=== PATIENT | male | born 1970 | race Caucasian/White ===

== ENCOUNTER 2020-01-23 05:55 | Emergency (ER) | payer SELFPAY ==
[~2020-01-23] VITALS: Ht 188 cm; Wt 100.0 kg
[2020-01-23 06:01] VITALS: BP 162/96
--- NOTE | 2020-01-23 06:18 | PHYS DOC ---
Past History Past Medical History: Kidney Stones Past Surgical History: Other Additional Past Surgical Histo: KNEE SX Smoking: Cigarettes, Greater than 1 pack/day Alcohol Use: None Drug Use: None General Adult EDM: Chief Complaint: FLANK PAIN HPI: HPI: Patient is a 49-year-old male who presents with chief complaint of left flank pain that began at 1 AM. Patient describes 10 out of 10 stabbing pain in the left flank that radiates to the left testicle. Pain is mildly worse with palpation. Pain is been constant. Patient denies any dysuria hematuria. Patient has not had any fever or vomiting but is nauseous. Patient denies any other recent illnesses or trauma. Review of Systems: Review of Systems: Constitutional: Denies fever or chills Eyes: Denies change in visual acuity HENT: Denies nasal congestion or sore throat Respiratory: Denies cough or shortness of breath Cardiovascular: Denies chest pain or edema GI: Complains of left-sided abdominal pain and nausea but no vomiting, blood in stool or diarrhea : Denies dysuria Musculoskeletal: Complains of left flank pain Integument: Denies rash Neurologic: Denies headache, focal weakness or sensory changes Endocrine: Denies polyuria or polydipsia Lymphatic: Denies swollen glands Psychiatric: Denies depression or anxiety Heart Score: Risk Factors: Risk Factors: DM, Current or recent (<one month) smoker, HTN, HLP, family history of CAD, obesity. Risk Scores: Score 0 - 3: 2.5% MACE over next 6 weeks - Discharge Home Score 4 - 6: 20.3% MACE over next 6 weeks - Admit for Clinical Observation Score 7 - 10: 72.7% MACE over next 6 weeks - Early Invasive Strategies Current Medications: Current Meds: Current Medications Medications (Trade) Dose Ordered Sig/Cynthia Start Time Stop Time Status Last Admin Dose Admin Ketorolac Tromethamine (Toradol 15mg Vial) 15 mg 1X ONCE 01/23/20 06:15 01/23/20 06:16 UNV Ondansetron HCl (Zofran) 4 mg 1X ONCE 01/23/20 06:15 01/23/20 06:16 UNV Sodium Chloride 1,000 ml @ 1,000 mls/hr 1X ONCE 01/23/20 06:15 01/23/20 07:14 UNV Allergies: Allergies: Allergies Coded Allergies Type Severity Reaction Last Updated Verified No Known Drug Allergies 05/05/13 No Physical Exam: PE: Constitutional: Well developed, well nourished, mild distress HENT: Normocephalic, atraumatic, bilateral external ears normal, oropharynx moist, no oral exudates, nose normal. [] Eyes: PERRLA, EOMI, conjunctiva normal, no discharge. [] Neck: Normal range of motion, no tenderness, supple, no stridor. [] Cardiovascular:Heart rate regular rhythm, peripheral pulses are intact, cap refill is brisk Lungs & Thorax: Bilateral breath sounds clear, no respiratory distress Abdomen: Soft with mild left side abdominal tenderness without guarding or rebound, no masses, no pulsatile masses. [] Skin: Warm, dry, no erythema, no rash. [] Back: No tenderness, no CVA tenderness. [] Extremities: No tenderness, no cyanosis, no clubbing, ROM intact, no edema. [] Neurologic: Alert and oriented X 3, normal motor function, normal sensory function, no focal deficits noted. [] Psychologic: Affect normal, judgement normal, mood normal. [] Current Patient Data: Labs: Laboratory Tests Test 01/23/20 06:30 01/23/20 08:14 White Blood Count 12.5 x10^3/uL Red Blood Count 4.55 x10^6/uL Hemoglobin 14.5 g/dL Hematocrit 43.7 % Mean Corpuscular Volume 96 fL Mean Corpuscular Hemoglobin 32 pg Mean Corpuscular Hemoglobin Concent 33 g/dL Red Cell Distribution Width 13.4 % Platelet Count 240 x10^3/uL Neutrophils (%) (Auto) 82 % Lymphocytes (%) (Auto) 10 % Monocytes (%) (Auto) 7 % Eosinophils (%) (Auto) 1 % Basophils (%) (Auto) 1 % Neutrophils # (Auto) 10.2 x10^3uL Lymphocytes # (Auto) 1.3 x10^3/uL Monocytes # (Auto) 0.9 x10^3/uL Eosinophils # (Auto) 0.1 x10^3/uL Basophils # (Auto) 0.1 x10^3/uL Sodium Level 137 mmol/L Potassium Level 4.1 mmol/L Chloride Level 103 mmol/L Carbon Dioxide Level 24 mmol/L Anion Gap 10 Blood Urea Nitrogen 13 mg/dL Creatinine 1.0 mg/dL Estimated GFR (Cockcroft-Gault) 79.8 Glucose Level 124 mg/dL Calcium Level 8.8 mg/dL Urine Collection Type Unknown Urine Color Yellow Urine Clarity Hazy Urine pH 5.0 Urine Specific [place] 1.025 Urine Protein 30 mg/dl Urine Glucose (UA) Neg mg/dL Urine Ketones (Stick) Neg mg/dL Urine Blood Large Urine Nitrite Neg Urine Bilirubin Neg Urine Urobilinogen Dipstick 0.2 mg/dL Urine Leukocyte Esterase Neg Urine RBC 20-40 /HPF Urine WBC 1-4 /HPF Urine Squamous Epithelial Cells Few /LPF Urine Bacteria 0 /HPF Urine Mucus Mod /LPF Current Medications Medications (Trade) Dose Ordered Sig/Cynthia Route PRN Reason Start Time Stop Time Status Last Admin Dose Admin Ketorolac Tromethamine (Toradol 15mg Vial) 15 mg 1X ONCE IVP 01/23/20 06:30 01/23/20 06:31 DC 01/23/20 06:21 Ondansetron HCl (Zofran) 4 mg 1X ONCE IVP 01/23/20 06:30 01/23/20 06:31 DC 01/23/20 06:21 Sodium Chloride 1,000 ml @ 1,000 mls/hr 1X ONCE IV 01/23/20 06:30 01/23/20 07:29 DC 01/23/20 06:21 Morphine Sulfate (Morphine 4mg Syringe) 4 mg 1X ONCE IV 01/23/20 08:00 01/23/20 08:04 DC 01/23/20 08:12 Vital Signs: Vital Signs Date Time Temp Pulse Resp B/P (MAP) Pulse Ox O2 Delivery O2 Flow Rate FiO2 01/23/20 06:01 97.5 73 18 162/96 (118) 98 Room Air EKG: EKG: [] Radiology/Procedures: Radiology/Procedures: [][address] [address] IMAGING REPORT Signed PATIENT: NOELLE VALVERDE ACCOUNT: [id number] : 1970 LOCATION: ER AGE: 49 SEX: M EXAM STATUS: REG ER ORD. PHYSICIAN: ROBERT MENDEZ MD REASON: left flank pain, r/o stone PROCEDURE: CT ABDOMEN PELVIS WO CONTRAST CT abdomen and pelvis without contrast: Reason for examination: Left flank pain. Evaluate for stone. Comparison is made to previous study dated 05/05/2013. Helical images were obtained through the abdomen or pelvis with no intravenous or oral contrast administered. Reconstruction was performed in sagittal and coronal planes. Exposure: One or more of the following individualized dose reduction techniques were utilized for this examination: 1. Automated exposure control 2. Adjustment of the mA and/or kV according to patient size 3. Use of iterative reconstruction technique. The lung bases are clear. The heart size is normal with no pericardial effusion. No other focal abnormality seen at the liver, spleen, pancreas, gallbladder or adrenal glands. The abdominal aorta and inferior vena cava show no acute abnormalities. No abnormality seen at the appendix. The colon shows no diverticulosis, diverticulitis or colitis. The small intestinal tract shows no abnormal dilatation, wall thickening or obstruction. No abnormality seen at the stomach. The kidneys show nonobstructing right renal calculi. There is however a mild left hydronephrosis due to a 4 m calculus in the distal left ureter at least 5 cm above the ureterovesical junction. No renal masses are seen but there is some mild perinephric stranding on the left. No abnormality seen at the bladder. Prostate gland is enlarged at 5.4 cm. Seminal vesicles are symmetric. No free fluid or free air seen in the abdomen or pelvis. There is degenerative disc disease at the L4-5 and L5-S1 levels. IMPRESSION: Nonobstructing calculi in the right kidney. Mild left hydronephrosis due to an obstructing calculus in the distal left ureter approximately 5 cm above the ureterovesical junction. Enlarged prostate gland 5.4 cm. Electronically signed by: Wilder Francois MD (01/23/2020 7:12 AM) [facility] DICTATED AND SIGNED BY: WILDER FRANCOIS MD DATE: 01/23/20 0712 CC: ROBERT MENDEZ MD; PCP,NO ~ Course & Med Decision Making: Course & Med Decision Making Pertinent Labs and Imaging studies reviewed. (See chart for details) []reassessed at 7:14 am: pain much better, pt sleeping 49-year-old male presents with left flank pain. Patient has a left distal ureteral stone. Patient feels much better after treatment in ER. Patient not septic appearing. Discussed with patient need for follow-up with urology and return precautions given. Dg Disclaimer: Dg Disclaimer: This electronic medical record was generated, in whole or in part, using a voice recognition dictation system. Departure Departure: Impression: Primary Impression: Left ureteral stone Additional Impression: Left flank pain Disposition: 01 HOME/RESIDENCE PRIOR TO ADM Condition: STABLE Referrals: PCP,NO (PCP) urology 2-3 days Patient Instructions: Kidney Stones Additional Instructions: EMERGENCY DEPARTMENT GENERAL DISCHARGE INSTRUCTIONS THANK YOU for coming to [facility] Emergency Department (ED) today and trusting us with your care. We trust that you had a positive experience in our Emergency Department. If you wish to speak to the department Management you can contact the emergency department at YOUR FOLLOW UP INSTRUCTIONS ARE FOLLOWS: Do you have a private doctor? If you do not have a private doctor, please ask for a resource list of physicians or clinics that may be able to assist you with follow up care. The Emergency Physician has interpreted your x-rays. The X-ray specialist will also review them. If there is a change in the findings you will be notified in 48 hours when at all possible. A lab test or lab culture may have been done, your results will be reviewed and you will be notified if you need a change in treatment. ADDITIONAL INSTRUCTIONS AND INFORMATION Your care today has been supervised by a physician who is specially trained in emergency care. Many problems require more than one evaluation for a complete diagnosis and treatment. We recommend that you schedule your follow up appointment as recommended to ensure complete treatment of your illness or injury. If you are unable to obtain follow up care and continue to have a problem, or if your condition worsens we recommend that you return to the ED. We are not able to safely determine your condition over the phone nor are we a ble to give sound medical advice over the phone. For these safety reasons, if you call for medical advice we will ask you to come to the ED for further evaluation If you have any questions regarding these discharge instructions please call the ED at . SAFETY INFORMATION In the interest of safety, wellness, and injury prevention; we encourage you to wear your seatbelt, if you smoke; quit smoking, and we encourage your family to use protective helmet for bicycling and other sporting events that present an increased risk for head injury. IF YOUR SYMPTOMS WORSEN OR NEW SYMPTOMS DEVELOP, OR YOU HAVE CONCERNS ABOUT YOUR CONDITION; OR IF YOUR CONDITION WORSENS WHILE YOU ARE WAITING FOR YOUR FOLLOW UP APPOINTMENT; EITHER CONTACT YOUR PRIMARY CARE DOCTOR, THE PHYSICIAN WHOSE NAME AND NUMBER YOU WERE GIVEN, OR RETURN TO THE ED IMMEDIATELY. Scripts Tamsulosin Hcl (FLOMAX) 0.4 Mg Cap.er.24h 1 CAP PO DAILY for kidney stone for 5 Days, #5 CAP 0 Refills Prov: ROBERT MENDEZ MD 01/23/20 Ondansetron Hcl (ZOFRAN) 4 Mg Tablet 1 TAB PO Q6HRS for nausea, #12 TAB Prov: ROBERT MENDEZ MD 01/23/20 Ibuprofen (Ibu) 600 Mg Tablet 1 TAB PO Q6-8HRS for pain for 6 Days, #24 TAB 0 Refills Prov: ROBERT MENDEZ MD 01/23/20 Hydrocodone Bit/Acetaminophen (NORCO 5-325 TABLET) 1 Each Tablet 1 TAB PO PRN Q6HRS PRN for PAIN, #12 TAB 0 Refills Prov: ROBERT MENDEZ MD 01/23/20 Justification of Admission: Justification of Admission: Justification of Admission Dx: N/A ROBERT MENDEZ MD Jan 23, 2020 06:18
[2020-01-23] MEDS ORDERED: KETOROLAC 15 MG/ML VIAL. IVP ONE (06:30)
[2020-01-23] MEDS ORDERED: IV NORMAL SALINE 1,000ML 1,000 ML IV ONE (06:30)
[2020-01-23] MEDS ORDERED: ONDANSETRON PF 4 MG/2 ML VIAL. IVP ONE (06:30)
[2020-01-23 06:44] LABS: BASO # 0.1 x10^3/uL (0.0-0.2); BASO % 1 % (0-3); EOS # 0.1 x10^3/uL (0.0-0.7); EOS % 1 % (0-3); HEMATOCRIT 43.7 % (39.0-53.0); HEMOGLOBIN 14.5 g/dL (13.0-17.5); LYMPH # 1.3 x10^3/uL (1.0-4.8); LYMPH % 10 % (24-48); MEAN CORPUSCULAR HEMOGLOBIN 32 pg (25-35); MEAN CORPUSCULAR HGB CONC 33 g/dL (31-37); MEAN CORPUSCULAR VOLUME 96 fL (79-100); MONO # 0.9 x10^3/uL (0.0-1.1); MONO % 7 % (0-9); NEUT # 10.2 x10^3uL (1.8-7.7); NEUT % 82 % (31-73); PLATELET COUNT 240 x10^3/uL (140-400); RED BLOOD COUNT 4.55 x10^6/uL (4.30-5.70); RED CELL DISTRIBUTION WIDTH 13.4 % (11.5-14.5); WHITE BLOOD COUNT 12.5 x10^3/uL (4.0-11.0)
[2020-01-23 06:50] LABS: CALCIUM 8.8 mg/dL (8.5-10.1); GFR 79.8; POTASSIUM 4.1 mmol/L (3.5-5.1)
--- NOTE | 2020-01-23 07:14 | RAD ---
CT abdomen and pelvis without contrast: Reason for examination: Left flank pain. Evaluate for stone. Comparison is made to previous study dated 05/05/2013. Helical images were obtained through the abdomen or pelvis with no intravenous or oral contrast administered. Reconstruction was performed in sagittal and coronal planes. Exposure: One or more of the following individualized dose reduction techniques were utilized for this examination: 1. Automated exposure control 2. Adjustment of the mA and/or kV according to patient size 3. Use of iterative reconstruction technique. The lung bases are clear. The heart size is normal with no pericardial effusion. No other focal abnormality seen at the liver, spleen, pancreas, gallbladder or adrenal glands. The abdominal aorta and inferior vena cava show no acute abnormalities. No abnormality seen at the appendix. The colon shows no diverticulosis, diverticulitis or colitis. The small intestinal tract shows no abnormal dilatation, wall thickening or obstruction. No abnormality seen at the stomach. The kidneys show nonobstructing right renal calculi. There is however a mild left hydronephrosis due to a 4 m calculus in the distal left ureter at least 5 cm above the ureterovesical junction. No renal masses are seen but there is some mild perinephric stranding on the left. No abnormality seen at the bladder. Prostate gland is enlarged at 5.4 cm. Seminal vesicles are symmetric. No free fluid or free air seen in the abdomen or pelvis. There is degenerative disc disease at the L4-5 and L5-S1 levels. IMPRESSION: Nonobstructing calculi in the right kidney. Mild left hydronephrosis due to an obstructing calculus in the distal left ureter approximately 5 cm above the ureterovesical junction. Enlarged prostate gland 5.4 cm. Electronically signed by: Edith Mendiola MD (01/23/2020 7:12 AM) [email or web address]
[2020-01-23] MEDS ORDERED: MORPHINE SULFATE 4 MG/ML DISP.SYRIN. IV ONE (08:00)
[2020-01-23 08:51] LABS: COLOR,URINE YELLOW
[2020-01-23 08:52] LABS: BACTERIA,URINE 0 /HPF (0-FEW); BILIRUBIN,URINE NEG (NEG); CLARITY,URINE HAZY; GLUCOSE,URINE NEG (NEG); NITRITE,URINE NEG (NEG); RBC,URINE 20-40 /HPF (0-2); SQUAMOUS EPITHELIAL CELL,UR FEW /LPF; UROBILINOGEN,URINE 0.2 mg/dL (0.2 mg/dL)
[2020-01-23] MEDS ORDERED: IBUP-571 PO (09:04)
[2020-01-23] MEDS ORDERED: TAMS0.4C97 PO (09:04)
[2020-01-23] MEDS ORDERED: HYDR-3165 PO (09:04)
[2020-01-23] MEDS ORDERED: ONDA4TAB7 PO (09:04)
== END 2020-01-23 10:17 | disposition home or self-care (01) ==
LOC: ER 05:55
DX: N13.2 Hydronephrosis with renal and ureteral calculous obstruction (principal); F17.210 Nicotine dependence, cigarettes, uncomplicated; Z87.442 Personal history of urinary calculi
CPT/HCPCS: 36415; 74176; 80048; 81001; 85025; 96361; 96374; 96375; 99284; J1885; J2270; J2405; J7030